=== PATIENT | female | born 1990 | race African-American/Black ===

== ENCOUNTER 2024-08-11 08:29 | Observation (INO) | payer BC ==
[2024-08-11] MEDS ORDERED: ONDANSETRON 4 MG/2 ML VIAL ONE ×2 (09:11→19:43)
[2024-08-11] MEDS ORDERED: FAMOTIDINE 20 MG/50 ML IVPB 20 MG/50 ML MG IVPB ONE (09:11)
[2024-08-11] MEDS ORDERED: ACETAMINOPHEN INJECTION 100 ML ONE ×2 (09:11→19:43)
[2024-08-11] MEDS ORDERED: HALOPERIDOL LACTATE 5 MG/ML ONE (09:58)
[2024-08-11] MEDS: ONDANSETRON 4 MG/2 ML VIAL IVPB ONE (10:00)
[2024-08-11 10:26] LABS: BASO % 0.5 % (0-2.0); HEMATOCRIT 36.4 % (32.4-45.2); HEMOGLOBIN 11.5 GM/dL (10.7-15.3); LYMPH % 8.8 % (8-40); MCH 21.5 pg (25.7-33.7); MCHC 31.5 g/dl (32.0-36.0); MEAN CELL VOLUME 68.3 fl (80-96); MEAN PLT VOLUME 9.2 fl (7.5-11.1); MONO % 2.4 % (3.8-10.2); NEUT % 88.3 % (42.8-82.8); PLATELET COUNT 305 10^3/uL (134-434); RBC 5.34 M/mm3 (3.60-5.2); WHITE BLOOD COUNT 9.8 K/mm3 (4.0-10.0)
[2024-08-11] MEDS: HALOPERIDOL LACTATE 5 MG/ML IM ONE (10:35)
[2024-08-11] MEDS: LORazepam 2 MG/ML SDV VIAL IM ONE ×2 (10:43→11:31)
[2024-08-11 10:50] LABS: EPI CELLS 1 /uL (0-25.1); HYALINE CASTS 0 /uL (0-3.1); PH,URINE 7.5 (5.0-8.0); URINE APPEARANCE CLEAR; URINE BACTERIA 499 /uL (0-1359); URINE BILIRUBIN NEGATIVE (NEGATIVE); URINE COLOR YELLOW; URINE GLUCOSE (UA) 3+ (NEGATIVE); URINE KETONE 1+ (NEGATIVE); URINE LEUK ESTERASE NEGATIVE (NEGATIVE); URINE NITRITE NEGATIVE (NEGATIVE); URINE PROTEIN 2+ (NEGATIVE); URINE RBC 67 /uL (0-23.9); URINE UROBILINOGEN 0.2 mg/dL (0.2-1.0); URINE WBC 1 /uL (0-25.8)
[2024-08-11 10:52] LABS: CHLORIDE 98 mmol/L (98-107); POTASSIUM 4.2 mmol/L (3.5-5.1); SODIUM 133 mmol/L (136-145)
[2024-08-11 10:54] LABS: ALBUMIN 3.9 g/dl (3.4-5.0); ANION GAP 9 mmol/L (4-13); BLOOD UREA NITROGEN 15.1 mg/dL (7-18); CALCIUM 9.7 mg/dL (8.5-10.1); CO2 26 mmol/L (21-32); MAGNESIUM 1.9 mg/dL (1.8-2.4)
[2024-08-11 10:57] LABS: CREATININE 1.1 mg/dL (0.55-1.3); SGOT/AST 27 U/L (15-37); SGPT/ALT 34 U/L (13-61)
[2024-08-11 10:59] LABS: BILIRUBIN,TOTAL 0.8 mg/dL (0.2-1); GLUCOSE,RANDOM 478 mg/dL (74-106); TOT PROT 7.5 g/dl (6.4-8.2)
[2024-08-11 11:00] LABS: ALK PHOS 93 U/L (45-117)
[2024-08-11 11:06] LABS: VENOUS BASE EXCESS 1.2 mmol/L (-2-2); VENOUS PCO2 46.4 mmHg (38-52); VENOUS PH 7.38 (7.310-7.410)
[2024-08-11] MEDS: FAMOTIDINE 20 MG/50 ML IVPB 20 MG/50 ML MG IVPB ONE (11:16)
[2024-08-11] MEDS: ACETAMINOPHEN 1000 MG/100 ML BAG IVPB ONE (11:16)
[2024-08-11] MEDS: SODIUM CHLORIDE 0.9% 500 ML INFUS.BAG IV ONE ×2 (11:16→16:43)
[2024-08-11 11:24] LABS: ANISOCYTOSIS 2+; MACROCYTOSIS 0
[2024-08-11] MEDS ORDERED: INSULIN ASPART SLIDING SCALE (NOVOLOG) 1 VIAL SQ ONE ×2 (11:32→16:54)
[2024-08-11] MEDS: INSULIN ASPART SLIDING SCALE (NOVOLOG) 1 VIAL SQ ONE ×3 (12:04→16:59)
[2024-08-11] MEDS: INSULIN REGULAR HUMAN 100 UNITS/ML *VIAL SQ ONE (12:05)
[2024-08-11] MEDS ORDERED: ONDANSETRON 4 MG/2 ML VIAL IM PRN (17:39)
[2024-08-11] MEDS: SODIUM CHLORIDE 1,000 ML IV SCH (18:11)
[2024-08-11 18:44] LABS: CHOLESTEROL 234 mg/dL (50-200)
[2024-08-11 18:45] LABS: LDL CHOLESTEROL (ONLY SJRH) 100 mg/dL (5-100)
[2024-08-11 18:47] LABS: HDL CHOLESTEROL 116 mg/dL (40-60)
[2024-08-11 19:03] LABS: COCAINE, UR NEGATIVE (NEGATIVE); METHADONE, UR NEGATIVE (NEGATIVE); OPIATES, URI NEGATIVE (NEGATIVE); PHENCYCLIDINE,URINE NEGATIVE (NEGATIVE)
[2024-08-11 19:06] LABS: URINE AMPHETAMINES NEGATIVE (NEGATIVE); URINE BARBITURATES NEGATIVE (NEGATIVE); URINE BENZODIAZEPINES NEGATIVE (NEGATIVE)
[2024-08-11] MEDS: ACETAMINOPHEN 1000 MG/100 ML BAG IVPB PRN (19:51)
[2024-08-11] MEDS: ONDANSETRON 4 MG/2 ML VIAL IVPUSH PRN (19:52)
[2024-08-11] MEDS: INSULIN ASPART SLIDING SCALE (NOVOLOG) 1 VIAL SQ SCH (21:38)
[2024-08-11] MEDS: INSULIN (LEVEMIR) 100 UNITS/ML UNITS SQ SCH (21:39)
[2024-08-11] MEDS ORDERED: INSULIN (LEVEMIR) 100 UNITS/ML UNITS SQ ONE (21:47)
[2024-08-12 01:07] VITALS: BMI 22.4
[2024-08-12] MEDS: CEFTRIAXONE 1 G/50 ML PREMIX 50 ML IVPB SCH (05:16)
[2024-08-12] MEDS: ENOXAPARIN NA (PORCINE) 40 MG/0.4 ML DISP.SYRIN SQ SCH (09:35)
[2024-08-12 09:44] LABS: BASO % 0.1 % (0-2.0); HEMATOCRIT 36.4 % (32.4-45.2); HEMOGLOBIN 11.4 GM/dL (10.7-15.3); LYMPH % 8.5 % (8-40); MCHC 31.3 g/dl (32.0-36.0); MEAN CELL VOLUME 67.3 fl (80-96); MEAN PLT VOLUME 8.7 fl (7.5-11.1); MONO % 5.9 % (3.8-10.2); NEUT % 85.5 % (42.8-82.8); PLATELET COUNT 301 10^3/uL (134-434); RDW 16.4 % (11.6-15.6); WHITE BLOOD COUNT 18.1 K/mm3 (4.0-10.0)
[2024-08-12 10:04] LABS: POTASSIUM 3.2 mmol/L (3.5-5.1)
[2024-08-12 10:41] LABS: ALBUMIN 3.2 g/dl (3.4-5.0); CALCIUM 8.6 mg/dL (8.5-10.1); MAGNESIUM 1.8 mg/dL (1.8-2.4)
[2024-08-12 10:46] LABS: BILIRUBIN,TOTAL 1.1 mg/dL (0.2-1); TOT PROT 6.5 g/dl (6.4-8.2)
[2024-08-12] MEDS: CEFPODOXIME PROXETIL 200 MG TABLET [NF] PO SCH (14:57)
[2024-08-12] MEDS: metroNIDAZOLE 500 MG TABLET PO SCH (14:58)
[2024-08-12] MEDS: LORazepam 2 MG/ML SDV VIAL IVPUSH ONE ×2 (16:30→22:58)
[2024-08-12] MEDS ORDERED: IBUPROFEN 800 MG/8 ML IJ IVPB SCH (21:30)
[2024-08-12] MEDS ORDERED: ACETAMINOPHEN 1000 MG/100 ML BAG IVPB PRN (21:31)
[2024-08-12] MEDS ORDERED: ACETAMINOPHEN 500 MG TABLET (FP) PO PRN (22:25)
[2024-08-13] MEDS: LORazepam 2 MG/ML SDV VIAL IVPUSH PRN ×2 (10:11→21:24)
[2024-08-13 10:27] LABS: BASO % 0.3 % (0-2.0); EOS % 0.1 % (0-4.5); HEMATOCRIT 38.4 % (32.4-45.2); HEMOGLOBIN 11.9 GM/dL (10.7-15.3); LYMPH % 11.4 % (8-40); MCH 21.4 pg (25.7-33.7); MEAN CELL VOLUME 68.9 fl (80-96); MEAN PLT VOLUME 8.7 fl (7.5-11.1); MONO % 6.6 % (3.8-10.2); NEUT % 81.6 % (42.8-82.8); PLATELET COUNT 303 10^3/uL (134-434); RBC 5.57 M/mm3 (3.60-5.2); RDW 16.2 % (11.6-15.6); WHITE BLOOD COUNT 11.4 K/mm3 (4.0-10.0)
[2024-08-13 10:40] LABS: POTASSIUM 3.5 mmol/L (3.5-5.1)
[2024-08-13 10:43] LABS: BLOOD UREA NITROGEN 15.3 mg/dL (7-18)
[2024-08-13 10:46] LABS: CREATININE 0.9 mg/dL (0.55-1.3)
[2024-08-13] MEDS ORDERED: LORazepam 2 MG/ML SDV VIAL IVPUSH SCH (15:00)
[2024-08-13] MEDS: ONDANSETRON 4 MG/2 ML VIAL IVPUSH PRN (15:31)
[2024-08-13] MEDS: PANTOPRAZOLE SODIUM 40 MG VIAL IVPUSH ONE (18:07)
[2024-08-13] MEDS: KETOROLAC TROMETHAMINE 15 MG/ML VIAL IVPUSH ONE (18:08)
[2024-08-13] MEDS: PANTOPRAZOLE SODIUM 40 MG VIAL IVPUSH SCH (21:37)
[2024-08-14 08:56] VITALS: BP 150/81; PULSE 83; RESP 18; TEMP 98.1
[2024-08-14] MEDS: HYDROmorphone HCl 2 MG/ML VIAL IVPB ONE (11:01)
[2024-08-14] MEDS: CEFTRIAXONE 1 G/50 ML PREMIX 50 ML IVPB SCH (11:01)
[2024-08-14] MEDS: CEFTRIAXONE 1 GM in DEXTROSE 5%-WATER - 50 ML IVPB SCH (11:02)
[2024-08-14] MEDS: HYDROmorphone HCl 2 MG/ML VIAL IVPUSH ONE (11:04)
[2024-08-15] MEDS ORDERED: POLYETHYLENE GLYCOL (HEALTHYLAX) 3350 17 GM PACKET PO SCH (10:00)
== END 2024-08-14 15:05 | disposition left against medical advice (07) ==
LOC: JER 08:29 → JERBED 16:21 → J7W 23:20
PROVIDERS: ADMIT Internal Medicine; ATTEND Internal Medicine
PROC: 3E03329 Introduction of Other Anti-infective into Peripheral Vein, Percutaneous Approach (ICD-10-PCS; principal; 2024-08-11)
PROC: 3E0233Z Introduction of Anti-inflammatory into Muscle, Percutaneous Approach (ICD-10-PCS; 2024-08-11)
PROC: 3E013VG Introduction of Insulin into Subcutaneous Tissue, Percutaneous Approach (ICD-10-PCS; 2024-08-11)
PROC: 3E033NZ Introduction of Analgesics, Hypnotics, Sedatives into Peripheral Vein, Percutaneous Approach (ICD-10-PCS; 2024-08-11)
PROC: 3E023NZ Introduction of Analgesics, Hypnotics, Sedatives into Muscle, Percutaneous Approach (ICD-10-PCS; 2024-08-11)
PROC: 3E0337Z Introduction of Electrolytic and Water Balance Substance into Peripheral Vein, Percutaneous Approach (ICD-10-PCS; 2024-08-11)
PROC: 3E023GC Introduction of Other Therapeutic Substance into Muscle, Percutaneous Approach (ICD-10-PCS; 2024-08-11)
DX: K31.84 Gastroparesis (principal); F13.980 Sedative, hypnotic or anxiolytic use, unspecified with sedative, hypnotic or anxiolytic-induced anxiety disorder; E10.9 Type 1 diabetes mellitus without complications; R10.9 Unspecified abdominal pain; R01.1 Cardiac murmur, unspecified; Z79.891 Long term (current) use of opiate analgesic; Z90.49 Acquired absence of other specified parts of digestive tract; D50.9 Iron deficiency anemia, unspecified; F17.200 Nicotine dependence, unspecified, uncomplicated
CPT/HCPCS: 36415; 74177-TC; 80048; 80053; 80061; 80307; 81003; 82803; 82962; 83036; 83605; 83690; 83735; 84100; 84443; 84703; 85025; 87040; 87086; 87186; 93005; 93010; 96365; 96367; 96372; 96375; 96376; 99285-25; G0378; J0131; Q9967